=== PATIENT | female | born 1975 | race African-American/Black ===

== ENCOUNTER 2020-02-01 09:51 | Emergency (ER) | payer MEDICAID ==
[~2020-02-01] VITALS: Ht 162.6 cm; Wt 98.8 kg
[~2020-02-01 09:51] MED LIST: FERR142T6 PO; HYDR25TA PO; LABE100T5 PO; PRENATAL ONE T1 EACH PO; SULF1TAB48 PO
[2020-02-01 11:38] LABS: BASOPHILS % 0.3 % (0.0-2.0); EOSINOPHILS % 1.5 % (0.0-5.0); HEMATOCRIT. 38.1 % (36.0-48.0); HEMOGLOBIN. 12.6 g/dL (12.0-16.0); LYMPHOCYTES % 26.5 % (20.0-50.0); MEAN CORPUSCULAR HEMOGLOBIN 28.1 pg (28.0-32.0); MEAN CORPUSCULAR VOLUME 84.8 fL (81.0-99.0); MONOCYTES % 11.1 % (2.0-8.0); NEUTROPHILS % 60.6 % (40.0-76.0); PLATELET 369 x1000/uL (130-400); RED BLOOD CELL COUNT 4.49 mill/uL (4.2-5.4); RED CELL DISTRIBUTION WIDTH 14.6 % (11.6-14.6)
[2020-02-01 11:46] LABS: CHLORIDE 107 mEq/L (98-107)
[2020-02-01 14:38] LABS: CLARITY URINE CLEAR (CLEAR); COLOR URINE YELLOW (YELLOW); KETONES URINE NEGATIVE (NEGATIVE); LEUKOCYTE ESTERASE URINE NEGATIVE (NEGATIVE); NITRITE URINE NEGATIVE (NEGATIVE); OCCULT BLOOD URINE NEGATIVE (NEGATIVE); PROTEIN URINE TRACE (NEGATIVE); SPECIFIC GRAVITY URINE 1.031 (1.005-1.030)
[2020-02-01 15:37] VITALS: BP 129/79
== END 2020-02-01 15:38 | disposition home or self-care (01) ==
LOC: ER 09:51
DX: S09.90XA Unspecified injury of head, initial encounter (principal); S93.104A Unspecified dislocation of right toe(s), initial encounter; I10 Essential (primary) hypertension; M79.674 Pain in right toe(s); Z88.6 Allergy status to analgesic agent; Z88.8 Allergy status to other drugs, medicaments and biological substances; Z91.018 Allergy to other foods; Z79.899 Other long term (current) drug therapy; Z98.890 Other specified postprocedural states; Y04.0XXA Assault by unarmed brawl or fight, initial encounter; Y93.89 Activity, other specified; Y92.89 Other specified places as the place of occurrence of the external cause; Y99.8 Other external cause status
CPT/HCPCS: 36415; 72128; 72131; 73630; 80053; 81003; 85025; 93005; 99285